=== PATIENT | male | born 2000 | race Caucasian/White ===

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

== ENCOUNTER 2021-09-27 22:41 | Emergency (ER) | payer OTHER ==
[~2021-09-27 22:41] MED LIST: ACCUTANE PO; ASPIR 8181 MG PO; OXTELLAR XR600 MG PO; PERCOCET 7.5-31 EACH PO; STOOL SOFTENER250 MG PO; ZOFRAN 4 MG TAB4 MG PO
[2021-09-28] MEDS ORDERED: CEPHALEXIN500 MG PO (00:33)
== END 2021-09-28 00:50 | disposition home or self-care (01) ==
LOC: ER1 22:41
DX: L03.311 Cellulitis of abdominal wall (principal); F17.290 Nicotine dependence, other tobacco product, uncomplicated; Z88.8 Allergy status to other drugs, medicaments and biological substances
CPT/HCPCS: 99283